=== PATIENT | male | born 1945 | race Hispanic/Latino ===

== ENCOUNTER → 2017-05-19 | Outpatient (CLI) | payer MEDICARE, OTHER ==
[~2017-05-19] MED LIST: CLOPIDOGREL75 MG PO; DIGOXIN125 MCG PO; METOPROLOL SUC100 MG PO; PRAVASTATIN SOD40 MG PO
--- NOTE | 2017-05-20 08:51 | Diagnostic Imaging Report ---
MRI of the left shoulder without contrast. History: Shoulder pain. Injury of muscle. Rotator cuff injury. Decreased range of motion. Comparison: None Technique: Coronal PD FS, sagital PD FS, and axial PD and PD FS. Findings: Rotator cuff: There is rotator cuff tendinosis with midsubstance degeneration and partial tearing involving the anterior fibers of the supraspinatus and infraspinatus tendons at the humeral insertion site. This is best seen on series 3 image 14 and series 5 image 8. Additionally, there is subscapularis tendinosis. The teres minor tendon is intact. There is minimal retraction of the torn fibers and there is mild supraspinatus muscle atrophy. Osseous acromion complex: There is a type II acromion with mild lateral downsloping. There is moderate degenerative arthrosis at the acromioclavicular joint with undersurface spurring and narrowing supraspinatus tendon outlet. There is mild subacromial/subdeltoid bursitis. Glenohumeral joint: There is degeneration and fraying of the labrum. The articular cartilage surfaces are thin with regions of fraying and fissuring. The humeral head is well-seated in the glenoid fossa. There is an effusion/synovitis in the rotator interval and subcoracoid space containing a small amount of debris/small loose bodies. This is best seen on sagittal series 5 image 19 through 21. Biceps tendon: The biceps tendon is intact. Other findings: Negative for muscle denervation or osseous fracture. Impression: Rotator cuff tendinosis with partial tearing involving the anterior fibers of the supraspinatus and infraspinatus tendons at the humeral insertion site. Moderate degenerative arthrosis at the acromioclavicular joint with narrowing of the supraspinatus tendon outlet and mild subacromial/subdeltoid bursitis. Effusion/synovitis containing a small amount of debris/loose bodies in the rotator interval/subcoracoid space. Signed by: Dr. Eyal Delgado M.D. on 05/20/2017 8:48 AM
== END ==
LOC: MRI 14:12
PROVIDERS: ATTEND Specialist
DX: S46.092A Other injury of muscle(s) and tendon(s) of the rotator cuff of left shoulder, initial encounter (principal)